=== PATIENT | female | born 1980 ===

== ENCOUNTER 2022-02-14 08:21 | Day surgery (SDC) | payer MEDICAID ==
[2022-02-12 13:18] LABS: Hemoglobin 14.6 g/dL (12.0-15.5); Mean Corpuscular HGB CONC 34.8 g/dL (32.0-36.0); Mean Corpuscular Hemoglobin 28.9 pg (27.0-33.0); Mean Corpuscular Volume 83.2 fl (81.6-98.3); Mean Platelet Volume 11.5 fl (7.4-10.4); Platelet Count 224 10x3/uL (150-450); RBC Distribution Width 12.4 % (11.5-14.5); Red Blood Cell (RBC) Count 5.05 10x6/uL (3.90-5.03); White Blood Cell (WBC) Count 5.6 10x3/uL (3.5-10.5)
[2022-02-12 13:21] LABS: BHCG - Serum Negative (NEGATIVE); Pregs Control Background? CLEAR/WHITE (CLR/WHITE); Pregs Control Bar Appear? YES (CONTROL BAR)
[2022-02-14 02:50] VITALS: BMI 23.0
[2022-02-14] MEDS ORDERED: Gabapentin 300 MG CAP ONE (08:43)
[2022-02-14] MEDS ORDERED: Famotidine/PF 20 mg/2ml Vial ONE (08:44)
[2022-02-14] MEDS ORDERED: CeleCOXIB 100 MG CAP ONE (08:44)
[2022-02-14] MEDS ORDERED: EPINEPHrine 1 MG/ML AMP ONE (09:20)
[2022-02-14] MEDS ORDERED: Lidocaine 1% PF 5 ML VIAL ONE (09:21)
[2022-02-14] MEDS ORDERED: Midazolam HCl 2 mg/2 ml Vial ONE ×2 (09:21→09:43)
[2022-02-14] MEDS ORDERED: Rocuronium Bromide 10 MG/ML (10ML VIAL) ONE (09:21)
[2022-02-14] MEDS ORDERED: PROPOFOL 20 ML ONE (09:21)
[2022-02-14] MEDS ORDERED: Methylene Blue 50 MG/10 ML AMPUL ONE (09:21)
[2022-02-14] MEDS ORDERED: Ondansetron PF 4 MG/2 ML Vial ONE (09:21)
[2022-02-14] MEDS ORDERED: Bupivacaine PF 0.5% 30 ML VIAL ONE (09:21)
[2022-02-14] MEDS ORDERED: Fentanyl 100 MCG/2 ML VIAL ONE ×2 (09:22→11:48)
[2022-02-14] MEDS ORDERED: Ketorolac Tromethamine 30 MG/ML VIAL ONE (09:22)
[2022-02-14] MEDS ORDERED: Glycopyrrolate 0.2 MG/ML 5 ML SYRINGE ONE (09:22)
[2022-02-14] MEDS ORDERED: Ropivacaine 0.2% 550 ML 750 ML NERVE BLCK SCH (09:30)
[2022-02-14] MEDS ORDERED: CEFAZOLIN 2 GM VIAL ONE (09:33)
== END 2022-02-14 14:35 | disposition home or self-care (01) ==
LOC: CSHSDC 08:21
PROVIDERS: ATTEND Obstetrics & Gynecology
PROC: 0UT24ZZ Resection of Bilateral Ovaries, Percutaneous Endoscopic Approach (ICD-10-PCS; principal; 2022-02-14)
PROC: 0UT94ZZ Resection of Uterus, Percutaneous Endoscopic Approach (ICD-10-PCS; principal; 2022-02-14)
PROC: 0UT74ZZ Resection of Bilateral Fallopian Tubes, Percutaneous Endoscopic Approach (ICD-10-PCS; principal; 2022-02-14)
PROC: 0U544ZZ Destruction of Uterine Supporting Structure, Percutaneous Endoscopic Approach (ICD-10-PCS; principal; 2022-02-14)
PROC: 0U5F4ZZ Destruction of Cul-de-sac, Percutaneous Endoscopic Approach (ICD-10-PCS; principal; 2022-02-14)
DX: N80.00 Endometriosis of the uterus, unspecified (principal); N80.03 Adenomyosis of the uterus; N80.30 Endometriosis of pelvic peritoneum, unspecified; N80.319 Endometriosis of the anterior cul-de-sac, unspecified depth; N80.3C1 Endometriosis of the right uterosacral ligament, unspecified depth; N83.01 Follicular cyst of right ovary; N83.8 Other noninflammatory disorders of ovary, fallopian tube and broad ligament; E89.41 Symptomatic postprocedural ovarian failure; Z79.899 Other long term (current) drug therapy; Z87.891 Personal history of nicotine dependence; Z88.5 Allergy status to narcotic agent; Z98.890 Other specified postprocedural states
CPT/HCPCS: 36415; 84703; 85027; 86850; 86900; 86901; 88307; 88342; A4306; J0171; J1885; J2250; J2405; J2704; J2795; J3010; Q9968; S0020; S0028

== ENCOUNTER 2022-02-28 00:36 | Observation (INO) | payer MEDICAID ==
[2022-02-28 01:15] VITALS: BMI 22.8
[2022-02-28 01:41] LABS: SARS-CoV-2 NAA Rapid Test Not Detected (NotDetected)
[2022-02-28] MEDS ORDERED: Acetaminophen 325 MG TAB PO PRN (04:01)
[2022-02-28] MEDS ORDERED: Milk Of Magnesia 30 ML UDCUP PO PRN (04:01)
[2022-02-28] MEDS ORDERED: Morphine 4 MG/ML VIAL SLOW IVP PRN (04:07)
[2022-02-28] MEDS ORDERED: Morphine 2 MG/ML VIAL SLOW IVP PRN (04:07)
[2022-02-28 04:44] LABS: #Basophils 0.1 10x3/uL (0.0-0.2); #Eosinphils 0.2 10x3/uL (0.0-0.5); #Monocytes 0.7 10x3/uL (0.0-1.1); #Neutrophils 6.4 10x3/uL (1.5-8.4); %Basophils 0.7 % (0.0-2.0); %Eosinophils 1.9 % (0.0-6.0); %Lymphocytes 13.6 % (18.0-47.0); %Monocytes 8.4 % (0.0-10.0); Hemoglobin 12.3 g/dL (12.0-15.5); Mean Corpuscular HGB CONC 34.5 g/dL (32.0-36.0); Mean Corpuscular Hemoglobin 28.7 pg (27.0-33.0); Mean Corpuscular Volume 83.2 fl (81.6-98.3); Mean Platelet Volume 10.3 fl (7.4-10.4); Platelet Count 240 10x3/uL (150-450); RBC Distribution Width 12.8 % (11.5-14.5); Red Blood Cell (RBC) Count 4.29 10x6/uL (3.90-5.03); White Blood Cell (WBC) Count 8.6 10x3/uL (3.5-10.5)
[2022-02-28 04:50] LABS: PTT 27.5 sec (22.0-33.0); Prothrombin Time 10.4 sec (9.5-12.1)
[2022-02-28 05:00] LABS: Anion Gap 12 mmol/L (10-20); BUN (Urea Nitrogen) 8 mg/dL (7.0-18.7); Calc. Creatinine Clearance 86 mL/min (70-130); Calcium 9.1 mg/dL (7.8-10.44); Carbon Dioxide 26 mmol/L (22-29); Chloride 105 mmol/L (98-107); Estimated GFR 100; Glucose 125 mg/dL (70-105); Magnesium 2.1 mg/dL (1.6-2.6); Potassium 3.8 mmol/L (3.5-5.1); Sodium 139 mmol/L (136-145)
[2022-02-28] MEDS: metroNIDAZOLE 500 MG in Premix Bag 1 BAG IVPB SCH ×2 (05:07→13:22)
[2022-02-28] MEDS: Morphine 4 MG/ML VIAL SLOW IVP PRN ×2 (05:23→11:17)
[2022-02-28 12:32] LABS: #Basophils 0.1 10x3/uL (0.0-0.2); #Eosinphils 0.1 10x3/uL (0.0-0.5); #Monocytes 0.6 10x3/uL (0.0-1.1); #Neutrophils 7.4 10x3/uL (1.5-8.4); %Basophils 0.7 % (0.0-2.0); %Eosinophils 1.5 % (0.0-6.0); %Lymphocytes 12.4 % (18.0-47.0); %Monocytes 6.4 % (0.0-10.0); %Neutrophils 78.7 % (40.0-75.0); Mean Corpuscular HGB CONC 34.8 g/dL (32.0-36.0); Mean Corpuscular Hemoglobin 28.8 pg (27.0-33.0); Mean Corpuscular Volume 82.7 fl (81.6-98.3); Mean Platelet Volume 10.4 fl (7.4-10.4); Platelet Count 230 10x3/uL (150-450); RBC Distribution Width 12.6 % (11.5-14.5); Red Blood Cell (RBC) Count 4.17 10x6/uL (3.90-5.03); White Blood Cell (WBC) Count 9.4 10x3/uL (3.5-10.5)
[2022-02-28 15:53] VITALS: BP 109/63; TEMP 98.8
== END 2022-02-28 17:33 | disposition home or self-care (01) ==
LOC: CSHTELE 00:36 → INTOOBSV 00:36
PROVIDERS: ADMIT Family Medicine; ATTEND Family Medicine
DX: N99.840 Postprocedural hematoma of a genitourinary system organ or structure following a genitourinary system procedure (principal); N99.820 Postprocedural hemorrhage of a genitourinary system organ or structure following a genitourinary system procedure; Z88.6 Allergy status to analgesic agent; Z88.1 Allergy status to other antibiotic agents; Z91.040 Latex allergy status; Z90.710 Acquired absence of both cervix and uterus; Z98.890 Other specified postprocedural states; Z20.822 Contact with and (suspected) exposure to COVID-19
CPT/HCPCS: 36415; 80048; 83735; 85025; 85610; 85730; 96374; 96375; G0378; J0744; J2270; U0002

== ENCOUNTER 2022-03-03 16:26 | Inpatient (IN) | payer MEDICAID ==
[~2022-03-03 16:26] MED LIST: Iopamidol 300 61% 100 ML VIAL FS ONE
[2022-03-03 17:06] LABS: #Basophils 0.1 10x3/uL (0.0-0.2); #Eosinphils 0.1 10x3/uL (0.0-0.5); #Monocytes 0.7 10x3/uL (0.0-1.1); #Neutrophils 8.6 10x3/uL (1.5-8.4); %Basophils 0.6 % (0.0-2.0); %Eosinophils 0.6 % (0.0-6.0); %Lymphocytes 5.8 % (18.0-47.0); %Monocytes 6.5 % (0.0-10.0); %Neutrophils 86.2 % (40.0-75.0); Hemoglobin 13.8 g/dL (12.0-15.5); Mean Corpuscular HGB CONC 34.8 g/dL (32.0-36.0); Mean Corpuscular Hemoglobin 28.2 pg (27.0-33.0); Mean Platelet Volume 10.3 fl (7.4-10.4); Platelet Count 296 10x3/uL (150-450); RBC Distribution Width 12.2 % (11.5-14.5); Red Blood Cell (RBC) Count 4.89 10x6/uL (3.90-5.03)
[2022-03-03] MEDS ORDERED: Morphine 4 MG/ML VIAL ONE (17:12)
[2022-03-03] MEDS ORDERED: Ketorolac Tromethamine 30 MG/ML VIAL ONE (17:13)
[2022-03-03] MEDS ORDERED: Ondansetron PF 4 MG/2 ML Vial ONE (17:13)
[2022-03-03 17:18] LABS: ALT (SGPT) 13 U/L (8-55); AST (SGOT) 14 U/L (5-34); Albumin 4.2 g/dL (3.5-5.0); Alkaline Phosphatase 115 U/L (40-110); Anion Gap 17 mmol/L (10-20); BUN (Urea Nitrogen) 6 mg/dL (7.0-18.7); Bilirubin, Total 0.7 mg/dL (0.2-1.2); Calc. Creatinine Clearance 0 mL/min (70-130); Calcium 9.3 mg/dL (7.8-10.44); Carbon Dioxide 21 mmol/L (22-29); Chloride 103 mmol/L (98-107); Estimated GFR 111; Glucose 117 mg/dL (70-105); Potassium 3.9 mmol/L (3.5-5.1); Protein, Total 7.2 g/dL (6.0-8.3); Sodium 137 mmol/L (136-145)
[2022-03-03] MEDS ORDERED: Piperacillin/Tazobactam 3.375 GM VIAL ONE (19:08)
[2022-03-03 19:20] LABS: SARS-CoV-2 NAA Rapid Test Not Detected (NotDetected)
[2022-03-03 21:59] VITALS: BMI 23.8
[2022-03-03] MEDS: Ketorolac Tromethamine 30 MG/ML VIAL IVP SCH (23:48)
[2022-03-03] MEDS: Ondansetron ODT 4 MG TAB PO PRN (23:48)
[2022-03-03] MEDS: Acetaminophen 325 MG TAB PO PRN (23:59)
[2022-03-04] MEDS ORDERED: Piperacillin/Tazobactam 3.375 GM in Sodium Chloride 0.9% 100 ML IVPB SCH (04:00)
[2022-03-04] MEDS: Ondansetron ODT 4 MG TAB PO PRN ×2 (05:38→11:38)
[2022-03-04] MEDS: Ketorolac Tromethamine 30 MG/ML VIAL IVP SCH ×3 (05:42→17:57)
[2022-03-04] MEDS: Ciprofloxacin 500 MG TAB PO SCH ×2 (05:43→20:28)
[2022-03-04] MEDS: metroNIDAZOLE 500 MG in Premix Bag 1 BAG IVPB SCH ×3 (05:50→22:48)
[2022-03-04] MEDS: Famotidine 20 MG TAB PO SCH ×2 (09:13→20:28)
[2022-03-04] MEDS: Acetaminophen 325 MG TAB PO PRN (20:28)
[2022-03-04] MEDS: Ketorolac Tromethamine 30 MG/ML VIAL IVP PRN (23:40)
[2022-03-05] MEDS: Ketorolac Tromethamine 30 MG/ML VIAL IVP PRN (06:17)
[2022-03-05] MEDS: metroNIDAZOLE 500 MG in Premix Bag 1 BAG IVPB SCH ×3 (06:17→21:46)
[2022-03-05] MEDS: Ciprofloxacin 500 MG TAB PO SCH ×2 (06:17→21:46)
[2022-03-05 09:01] LABS: #Basophils 0.1 10x3/uL (0.0-0.2); #Eosinphils 0.1 10x3/uL (0.0-0.5); #Monocytes 0.7 10x3/uL (0.0-1.1); #Neutrophils 6.6 10x3/uL (1.5-8.4); %Basophils 0.7 % (0.0-2.0); %Eosinophils 1.5 % (0.0-6.0); %Monocytes 7.9 % (0.0-10.0); %Neutrophils 77.4 % (40.0-75.0); Hemoglobin 11.9 g/dL (12.0-15.5); Mean Corpuscular HGB CONC 34.5 g/dL (32.0-36.0); Mean Corpuscular Hemoglobin 28.1 pg (27.0-33.0); Mean Corpuscular Volume 81.4 fl (81.6-98.3); Mean Platelet Volume 10.2 fl (7.4-10.4); Platelet Count 298 10x3/uL (150-450); RBC Distribution Width 12.4 % (11.5-14.5); Red Blood Cell (RBC) Count 4.24 10x6/uL (3.90-5.03); White Blood Cell (WBC) Count 8.5 10x3/uL (3.5-10.5)
[2022-03-05] MEDS: Famotidine 20 MG TAB PO SCH ×2 (09:05→21:46)
[2022-03-05 09:31] LABS: ALT (SGPT) 9 U/L (8-55); AST (SGOT) 18 U/L (5-34); Albumin 3.6 g/dL (3.5-5.0); Alkaline Phosphatase 94 U/L (40-110); Anion Gap 14 mmol/L (10-20); BUN (Urea Nitrogen) 6 mg/dL (7.0-18.7); Bilirubin, Total 0.4 mg/dL (0.2-1.2); Calc. Creatinine Clearance 101 mL/min (70-130); Calcium 9.2 mg/dL (7.8-10.44); Carbon Dioxide 22 mmol/L (22-29); Chloride 106 mmol/L (98-107); Estimated GFR 111; Globulin 3.1 g/dL (2.4-3.5); Glucose 94 mg/dL (70-105); Potassium 3.4 mmol/L (3.5-5.1); Protein, Total 6.7 g/dL (6.0-8.3); Sodium 139 mmol/L (136-145)
[2022-03-05] MEDS ORDERED: Bupivacaine PF 0.5% 30 ML VIAL ONE (11:56)
[2022-03-05] MEDS ORDERED: EPINEPHrine 1 MG/ML AMP ONE (11:58)
[2022-03-05] MEDS ORDERED: Rocuronium Bromide 10 MG/ML (10ML VIAL) ONE (12:01)
[2022-03-05] MEDS ORDERED: PROPOFOL 20 ML ONE (12:01)
[2022-03-05] MEDS ORDERED: Dexamethasone 4 mg/ml Vial ONE (12:01)
[2022-03-05] MEDS ORDERED: Ondansetron PF 4 MG/2 ML Vial ONE ×2 (12:01→13:42)
[2022-03-05] MEDS ORDERED: Midazolam HCl 2 mg/2 ml Vial ONE (12:01)
[2022-03-05] MEDS ORDERED: Lidocaine 1% PF 5 ML VIAL ONE (12:01)
[2022-03-05] MEDS ORDERED: Fentanyl 100 MCG/2 ML VIAL ONE ×2 (12:02→12:48)
[2022-03-05] MEDS ORDERED: Ondansetron PF 4 MG/2 ML Vial IVP PRN (14:25)
[2022-03-05] MEDS ORDERED: Morphine 2 MG/ML VIAL SLOW IVP PRN (14:25)
[2022-03-05] MEDS ORDERED: Zolpidem Tartrate 5 MG TAB PO PRN (14:25)
[2022-03-05] MEDS ORDERED: Bisacodyl 10 MG SUPP PR PRN (14:25)
[2022-03-05] MEDS ORDERED: Simethicone Chewable 80 MG TAB PO PRN (14:25)
[2022-03-05] MEDS ORDERED: diphenhydrAMINE 25 MG CAP PO PRN (14:25)
[2022-03-05] MEDS ORDERED: Morphine 4 MG/ML VIAL ONE (14:39)
[2022-03-05] MEDS: Morphine 2 MG/ML VIAL SLOW IVP PRN ×3 (16:20→21:50)
[2022-03-05] MEDS: Sodium Chloride 0.9% 1,000 ML IV SCH ×2 (16:22→23:51)
[2022-03-05] MEDS: traMADol HCl 50 MG TAB PO PRN (17:06)
[2022-03-05] MEDS: Ketorolac Tromethamine 30 MG/ML VIAL IVP SCH (18:38)
[2022-03-06] MEDS: Ketorolac Tromethamine 30 MG/ML VIAL IVP SCH ×3 (00:09→12:29)
[2022-03-06] MEDS: Morphine 2 MG/ML VIAL SLOW IVP PRN (03:41)
[2022-03-06] MEDS: Ciprofloxacin 500 MG TAB PO SCH (05:57)
[2022-03-06] MEDS: metroNIDAZOLE 500 MG in Premix Bag 1 BAG IVPB SCH (05:57)
[2022-03-06] MEDS: Sodium Chloride 0.9% 1,000 ML IV SCH (09:00)
[2022-03-06] MEDS: traMADol HCl 50 MG TAB PO PRN (09:25)
[2022-03-06] MEDS: Famotidine 20 MG TAB PO SCH (09:27)
[2022-03-06 11:29] VITALS: BP 118/60; TEMP 98
== END 2022-03-06 12:54 | disposition home or self-care (01) | DRG 856 ==
LOC: CSHERS 16:26 → CSHPP 21:28
PROVIDERS: ADMIT Obstetrics & Gynecology; ATTEND Obstetrics & Gynecology
PROC: 0W9J4ZZ Drainage of Pelvic Cavity, Percutaneous Endoscopic Approach (ICD-10-PCS; principal; 2022-03-05)
DX: T81.43XA Infection following a procedure, organ and space surgical site, initial encounter (principal); K65.1 Peritoneal abscess; N99.842 Postprocedural seroma of a genitourinary system organ or structure following a genitourinary system procedure; N99.840 Postprocedural hematoma of a genitourinary system organ or structure following a genitourinary system procedure; R19.7 Diarrhea, unspecified; K66.0 Peritoneal adhesions (postprocedural) (postinfection); Z90.710 Acquired absence of both cervix and uterus; Z88.8 Allergy status to other drugs, medicaments and biological substances; Z91.040 Latex allergy status; Z79.899 Other long term (current) drug therapy; Z98.890 Other specified postprocedural states; Z90.89 Acquired absence of other organs; Z90.79 Acquired absence of other genital organ(s); Z90.722 Acquired absence of ovaries, bilateral; Z91.14 Patient's other noncompliance with medication regimen; Z80.3 Family history of malignant neoplasm of breast; Z80.0 Family history of malignant neoplasm of digestive organs; Z20.822 Contact with and (suspected) exposure to COVID-19; Z88.1 Allergy status to other antibiotic agents; N76.0 Acute vaginitis; N73.9 Female pelvic inflammatory disease, unspecified
CPT/HCPCS: 36415; 74177; 80053; 84484; 85025; 87040; 87086; 88112; 96361; 96365; 96368; 96375; J0171; J1100; J1885; J2250; J2270; J2405; J2543; J2704; J3010; J3370; J7050; Q0162; Q9967; S0020